=== PATIENT | female | born 1990 | race Asian ===

== ENCOUNTER 2021-05-24 12:49 | Emergency (ER) | payer OTHER ==
[~2021-05-24] VITALS: Ht 152.4 cm; Wt 54.9 kg
[2021-05-24] MEDS ORDERED: IBU400 MG (13:07)
[2021-05-24] MEDS ORDERED: CIPRO500 MG (13:07)
[2021-05-24] MEDS ORDERED: MEDROLPACK PO (15:52)
== END 2021-05-24 16:00 | disposition home or self-care (01) ==
LOC: ER 12:49
DX: M25.542 Pain in joints of left hand (principal); M25.541 Pain in joints of right hand